=== PATIENT | male | born 1990 | race Caucasian/White ===

== ENCOUNTER → 2018-11-09 10:11 | Outpatient (CLI) | payer MEDICAID, SELFPAY ==
--- NOTE | 2018-11-09 10:22 | XR_ITS ---
XR chest 2V HISTORY: ITS.REASON: SCREENING FOR TUBERCULOSIS ORDERING PHYSICIAN: Guerrero Goins MD PATIENT AGE: 28 years COMPARISON: None FINDINGS: The cardiomediastinal silhouette and pulmonary vascularity are within normal limits. The lungs are clear without infiltrates, suspicious nodules, or pleural effusions. There is minimal mid thoracic curvature convex right No acute bony abnormalities. IMPRESSION: No acute finding. No evidence of active granulomatous process
== END ==
PROVIDERS: PCP Family Medicine; Visit Provider Family Medicine
DX: Z11.1 Encounter for screening for respiratory tuberculosis (principal)
CPT/HCPCS: 71046

== ENCOUNTER 2020-04-14 20:08 | Emergency (ER) | payer OTHER, SELFPAY ==
[2020-04-14 20:10] VITALS: BP 138/83; PULSE 117; RESP 16; TEMP 37.1; O2SAT 100; BMI 23.3
--- NOTE | 2020-04-14 20:31 | ECG_ITS ---
APPROVED REPORT Exam: Resting ECG HR:101 bpm ECG Measurements Heart Rate 101 AXES NH 162 P 65 QRSd 90 QRS 87 QT 344 T 5 QTc 446 Conclusion Sinus tachycardia Possible Inferior infarct, age undetermined Abnormal ECG Electronically signed by : Renny Resendiz, 04/15/2020 06:25:55
--- NOTE | 2020-04-14 20:36 | [facility].EDGENADL ---
ED Disposition Clinical Impression: Seizure-like activity Disposition: Home, Self-Care Condition on Discharge: Fair Instructions: DI for Seizure Disorder -- Adult, DI for Seizure (Not Epilepsy/Seizure Disorder), DI for Seizure Disorder -- Child Referrals: PCP,No [Primary Care Provider] - - Critical Care Critical Care Time: No Attestation: On 04/14/20, the high probability of a clinically significant, sudden or life threatening deterioration of the following system(s) required my full and direct attention, intervention and personal management. The time I documented below is in addition to time spent performing reported procedures but includes the following listed in this critical care notation. Medical Decision Making - Medical Records Medical records reviewed: Yes: I reviewed the patient's medical records. - Angel Inquiry Pt receiving controlled substance: No Vital Signs: 04/14/20 20:10 Temperature 98.8 F Temperature Source Oral Pulse Rate [Right] 117 H Respiratory Rate 16 Blood Pressure [Right Arm] 138/83 Blood Pressure Mean [Right Arm] 101 Blood Pressure Source [Right Arm] Automatic Cuff Blood Pressure Position [Right Arm] Sitting 02 Sat by Pulse Oximetry 100 Oxygen Delivery Method Room Air Orders (Tests/Meds): ED MEDICATIONS Discontinued Medications Generic Name Dose Route Start Last Admin Trade Name Freq PRN Reason Stop Dose Admin Acetaminophen 1,000 mg 04/14/20 20:24 04/14/20 20:33 Acetaminophen 500mg Tab PO 04/14/20 20:25 1,000 mg ONCE ONE Administration Ibuprofen 400 mg 04/14/20 20:24 04/14/20 20:34 Ibuprofen 400 Mg Tablet PO 04/14/20 20:25 400 mg ONCE ONE Administration Ondansetron HCl 4 mg 04/14/20 20:24 04/14/20 20:33 Ondansetron 4mg Odt SL 04/14/20 20:25 4 mg ONCE ONE Administration ORDERS Category Date Time Status ECG Request by /Nse Stat Y 04/14/20 20:24 Ordered Medical Decision Narrative: The patient is a 29-year-old male with a history of developmental delay who resides at a home who presents to the emergency department today with mini seizures . Patient says he has sees regularly frequently, however he does not have a neurologist. No postictal period, loss of bowel or bladder symptoms, lateral tongue biting. Most likely pseudoseizure. She never lost consciousness. Reassuring for true seizure. Sickle exam normal with a normal neurologic exam. Patient mildly tachycardic, however well-appearing.. Given Tylenol, ibuprofen, and Zofran. EKG ordered. Only abnormal, however explained by significant smoking history. Patient tolerating p.o. here and feeling well. On reassessment vital signs normalized. Patient had resolutions of his symptoms. Return precautions given. Discharged General Adult HPI - General Chief complaint: Seizure Stated complaint: Seizures Time Seen by Provider: 04/14/20 20:15 Mode of Arrival: EMS Limitations: No Limitations Description of Symptoms (Recalled from ER Triage Doc. by RN): Pt states he has had mini Seizures today, he remembers the seizures and was never postictal. He states he takes medications, but does not remember what they are. Pt has no symptoms at this time. - History of Present Illness HPI narrative: Patient has a history of developmental delay and resides at a longterm. Patient states he also has a history of seizures, however does not see a neurologist. Patient states he does not recall what medications he takes. Patient had a mini seizure today patient was alert throughout. Patient states he did not go to the bathroom on himself or bite his tongue. Patient states these were typical of his usual many seizures. Patient has been taking medication as prescribed recently. Patient also states he has had a mild headache, dizziness, chest pain, nausea which have been persistent since he was a child. No new complaints. - Related Data Allergies Allergy/AdvReac Type Severity
[2020-04-14 21:40] VITALS: BP 136/81; PULSE 98; RESP 16; TEMP 36.6; O2SAT 99
== END 2020-04-14 21:43 | disposition home or self-care (01) ==
PROVIDERS: Emergency Provider Emergency Medicine
DX: G40.89 Other seizures (principal); R62.50 Unspecified lack of expected normal physiological development in childhood; R42 Dizziness and giddiness; F17.210 Nicotine dependence, cigarettes, uncomplicated; F41.9 Anxiety disorder, unspecified
CPT/HCPCS: 93005; 99281